=== PATIENT | female | born 1955 ===

== ENCOUNTER 2022-08-17 08:04 | Day surgery (SDC) | payer OTHER ==
[~2022-08-17] VITALS: Ht 160 cm; Wt 73.9 kg
[~2022-08-17 08:04] MED LIST: B12 ACTIVE1000 MCG PO; BENICAR20 MG PO; CHILDREN'S ASPI81 MG PO; FOLIC ACID0.8 M1 PO; LIPITOR20 MG PO; SYMBICORT 16010.2 GM IH; ZYRTEC10 M3 PO
[2022-08-17] MEDS ORDERED: PERCOCET 5-3251 EACH PO (13:12)
== END 2022-08-17 16:00 | disposition home or self-care (01) ==
LOC: CIR.AMB 08:04
PROVIDERS: ATTEND Surgery
DX: C73 Malignant neoplasm of thyroid gland (principal); I10 Essential (primary) hypertension; Z20.822 Contact with and (suspected) exposure to COVID-19